=== PATIENT | female | born 1970 | race African-American/Black ===

== ENCOUNTER 2018-06-21 18:28 | Emergency (ER) | payer MEDICAID ==
[~2018-06-21] VITALS: Ht 175.3 cm; Wt 86.0 kg
[2018-06-21 18:38] VITALS: BP 121/48
== END 2018-06-21 20:00 | disposition left against medical advice (07) ==
LOC: ER 18:28
DX: Z53.21 Procedure and treatment not carried out due to patient leaving prior to being seen by health care provider (principal)